=== PATIENT | female | born 1970 ===

== ENCOUNTER 2025-06-28 10:22 | Outpatient (AMB) | payer BC, SELFPAY ==
--- OUTSIDE RECORDS SUMMARY | 2024-06-15 11:00 | XMS_ITS | Continuity of Care Document ---
Author Organization [facility] Address [address] [place] [address] Phone Care Team Providers Care Informatics Nurse Name Role Phone Everton KABA, JESUS, Luis MORAN Unavailable U navailable Procedures Procedure Date Surgical Stockings CVR Reveal Thigh High 20-30 No Charge For Services Advance Directives Directive Yes / No Effective Date File Name No Information Encounters Encounter Description Practice Location Reason(s) For Visit Diagnoses Date Provider Providers Copied on Encounter [facility], [address], [place], [id number], [place] tel:[phone] CVR - [facility] Nevus, non-neoplas tic 4 Everton KABA, DEAN LEE. [address], [place], [place], [id number] , [place]. tel:[phone] Family History Family Member Type Diagnosis Age At Onset No Information Payers Payer name Insurance type Covered alliance party ID Authoriza tion(s) Self Pay 09 Social History Type Description Quantity Date Captured Comments Alcohol Use Details Unknown Caffeine Use Details Unknown Tobacco Use Status Never smoked tobacco 2023 Smoking Status Never smoker Non-Smoking Tobacco Use Details : No Details Available : No Details Available Sex Female Chief Complaint And Reason For Visit No Information Reason For Referral Reason For Referral No Information Plan Of Treatment Date Type Action Status Goal Tobacco cessation counseling completed History Of Present Illness Encounter Date Complaint History Of Prese nt Illness No Information Functional Status Date Functional Assessmen t No Information Instructions Date Instruction Additional Infor mation No Information Assessments Type Assessment Date assessment Nevus, non-neoplastic 4 Patient Care Teams Name Effective Dates (start - stop) Status Members No Information
--- OUTSIDE RECORDS SUMMARY | 2025-06-25 23:59 | XMS_ITS | Continuity of Care Document ---
Author Organization [facility] Address [address] [place] [address]- Care Team Providers Care Merchant Patroller Name Role Phone Jesús HINES, She Primary Care Physician [phone] Encounter [facility] Date(s): 05/26/25 - 06/25/[address] [address]- Encounter Type: Triage Allergies, Adverse Reactions, Alerts Substance Criticality Severity Reaction Reaction Severity Status Other Environmental Allergy Active Immunizations Given and Recorded Vaccine Date Status Refusal Reason SARS-CoV-2 (COVID-19) mRNA BNT-162b2 vac 02/22/21 Recorded SARS-CoV-2 (COVID-19) mRNA BNT-162b2 vac 02/01/21 Recorded tetanus-diphtheria toxoids (Td) 04/17/18 Given Measles/Mumps/Rubella Virus Vaccine 1 06/05/12 Giv en Tet/Diphth/Acel, Pertussis (oldterm) 06/06/08 Give n 1Admin Note: Sterile Diluent Lot# [id number] Exp: 04/2013 VIS: 01/21/2008 Medications calcium and vitamin D combination 600 mg-200 u oral tablet 1 tablet, By Mouth, Daily, 0 Refills, Maintenance, 09/20/10 11:38:02 AM EST Start Date: 09/20/10 Status: Ordered Repeat number: 1 Multivitamin Tablet 1 tablet, By Mouth, Daily, # 30, 0 Refills, 06/06/08 11:24:07 AM EDT Start Date: 06/06/08 Status: Ordered Quantity: 30.0 Unit: Repeat number: 1 Problem List Condition Confirmation Course Effective Dates Status Health St atus Informant Allergic rhinitis Confirmed Active Hyperlipidemia Confirmed 02/2007 Active Hypertension Confirmed 12/18/10 Active Chronic joint pain Confirmed Active Left shoulder pain Confirmed Active Social History Social History Type Response Smoking Status Never smoker entered on: 04/16/17 Sex Sex Representation Female (finding) Patient Care team information Care Team Personnel Name: She Espinosa NP Position: S PCO Associate Professional Member Role: PCP Address: [address] [place] [address] [address] [place], [place] [address] Telecom: Care Team Related Persons Name: YAN POMPA Insurance Providers Guarantor name: DIPTI POMPA Health Plan Information #: 1 Payer: [facility] Payer Identifier: NA Member Number: [id number] Group Number: [id number] Subscriber Identifier: [id number] Relationship to Subscriber: self Coverage Type: NA Coverage Verification Date: NA Telecom: NA Address:
== END 2025-06-28 10:50 | disposition home or self-care (01) ==
LOC: HO.HMGAL 10:22
PROVIDERS: PCP Internal Medicine; Visit Provider Registered Nurse Emergency
DX: J30.89 Other allergic rhinitis (principal)
CPT/HCPCS: 95117; 95165

== ENCOUNTER 2025-08-17 13:03 | Outpatient (AMB) | payer BC, SELFPAY | END 2025-08-17 13:04 | disposition home or self-care (01) | LOC: HO.HMGAL 13:03 | PROVIDERS: PCP Nurse Practitioner Family; Visit Provider Registered Nurse Emergency | DX: J30.89 Other allergic rhinitis (principal) | CPT/HCPCS: 95117; 95165 ==

== ENCOUNTER 2025-09-28 16:17 | Outpatient (AMB) | payer BC, SELFPAY | END 2025-09-28 16:18 | disposition home or self-care (01) | LOC: HO.HMGAL 16:17 | PROVIDERS: PCP Nurse Practitioner Family; Visit Provider Registered Nurse Emergency | DX: J30.89 Other allergic rhinitis (principal) | CPT/HCPCS: 95117; 95165 ==

== ENCOUNTER 2025-11-09 09:40 | Outpatient (AMB) | payer BC, SELFPAY | END 2025-11-09 09:41 | disposition home or self-care (01) | LOC: HO.HMGAL 09:40 | PROVIDERS: PCP Nurse Practitioner Family; Visit Provider Registered Nurse Emergency | DX: J30.89 Other allergic rhinitis (principal) | CPT/HCPCS: 95117; 95165 ==